=== PATIENT | female | born 1975 | race Caucasian/White ===

== ENCOUNTER → 2023-02-09 | Outpatient (CLI) | payer MEDICARE ==
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
== END | disposition home or self-care (01) ==
LOC: RADXRMAIN 15:40
PROVIDERS: ATTEND Internal Medicine
DX: M48.04 Spinal stenosis, thoracic region (principal); K42.9 Umbilical hernia without obstruction or gangrene; M47.812 Spondylosis without myelopathy or radiculopathy, cervical region; V89.2XXA Person injured in unspecified motor-vehicle accident, traffic, initial encounter
CPT/HCPCS: 70450; 72125; 72128; 72131

== ENCOUNTER → 2024-04-16 | Outpatient (CLI) | payer MEDICARE, OTHER ==
[2024-04-16 19:33] LABS: ALT 12 U/L (8-44); AST 15 U/L (13-35); Albumin 4.3 g/dL (3.8-4.9); Albumin/Globulin Ratio 1.59 Ratio (1.60-3.17); Alkaline Phosphatase 79 U/L (41-126); BUN/Creat Ratio 12.38 Ratio (12.00-20.00); Blood Urea Nitrogen 9.9 mg/dL (9.0-27.0); Calcium 9.4 mg/dL (8.7-10.3); Carbon Dioxide 21.4 mmol/L (21.6-31.8); Chloride 103 mmol/L (96-109); Globulin 2.7 g/dL (1.6-3.3); Glucose 151 mg/dL (70-110); Sodium 137 mmol/L (135-145); Total Bilirubin 0.2 mg/dL (0.3-1.2)
[2024-04-16 21:11] LABS: Basophils # (A) 0.06 X 10*3/uL (0.00-0.10); Basophils % (A) 0.5 %; Eosinophils # (A) 0.13 X 10*3/uL (0.04-0.35); Eosinophils % (A) 1.1 %; HCT 44.1 % (37.2-46.3); HGB 14.4 g/dL (12.0-15.0); Lymphocytes # (A) 3.47 X 10*3/uL (0.90-5.00); Lymphocytes % (A) 28.6 %; MCH 29.9 pg (27.0-32.0); MCHC 32.7 g/dL (32.0-37.0); MCV 91.5 FL (80.0-97.0); Mean Platelet Volume 9.5 FL (9.5-12.2); Monocytes # (A) 0.68 X 10*3/uL (0.20-1.00); Monocytes % (A) 5.6 %; NRBC Per 100 WBC 0 X 10*3/uL (0.00-0.01); Neutrophils # (A) 7.68 X 10*3/uL (1.80-7.70); Neutrophils % (A) 63.4 %; Platelet Count 372 X 10*3/uL (140-440); RBC 4.82 X 10*6/uL (4.10-5.20); RDW 13.2 % (11.5-14.5); WBC 12.12 X 10*3/uL (4.50-10.00)
== END | disposition home or self-care (01) ==
LOC: LABWHC1 15:07
PROVIDERS: ATTEND Internal Medicine
DX: L68.9 Hypertrichosis, unspecified (principal)
CPT/HCPCS: 36415; 80053; 82040; 82157; 82533; 82627; 84146; 84270; 84403; 84443; 85025

== ENCOUNTER → 2024-04-29 | Outpatient (CLI) | payer MEDICARE, OTHER ==
--- NOTE | 2024-04-29 16:52 | US ---
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 Transvaginal sonographic images of the pelvis were acquired. Date of LMP: age 32 EXAM MEASUREMENTS: Left Ovary: 3.3 x 1.9 x 2.1 cm 1. Uterus: Surgically absent 2. Endometrium: Surgically absent 3. Right Ovary: Surgically absent 4. Left Ovary: Follicles, small calcification= 0.3 x 0.4 x 0.3 cm 5. Bilateral Adnexa: wnl 6. Posterior cul-de-sac: wnl IMPRESSION: No evidence for acute process. The left ovary does not have a polycystic ovarian syndrome morphology.
--- NOTE | 2024-06-04 12:39 | MM ---
Reason for Exam: Screening (asymptomatic). Last mammogram was performed 2 year(s) and 1 month(s) ago. Patient History: Menarche at age 13. First Full-Term at age 17. Left ovary removed at age 32. Hysterectomy at age 32. Maternal grandmother had breast cancer, age 58. Maternal aunt (JOSE) had breast cancer, age 62. Maternal aunt (TSARR) had breast cancer, age 59. Maternal aunt (ANTWAN) had breast cancer, age 65. Maternal aunt (JOSE) tested for BRCA1 outcome was negative. Risk Values: Tatiana 5 year model risk: 0.7%. NCI Lifetime model risk: 7.6%. Prior Study Comparison: 04/01/2022 Bilateral Screening Mammogram, [facility]. Tissue Density: There are scattered areas of fibroglandular density. Findings: Analyzed By CAD. A few scattered benign round and punctate calcifications. Some dystrophic calcification lower inner quadrant right breast is unchanged. No significant change from prior exam. Overall Assessment: Benign, BI-RAD 2 Management: Screening Mammogram of both breasts in 1 year. 1. Screening Mammogram Bilateral in 1 Year . 2. Patient should continue monthly self-breast exams. A clinical breast exam by your physician is recommended on an annual basis. 3. This exam should not preclude additional follow-up of suspicious palpable abnormalities. Electronically signed and approved by: Cyndi Barron M.D. Radiologist
== END | disposition home or self-care (01) ==
LOC: RADMAMWWP 16:04
PROVIDERS: ATTEND Internal Medicine
DX: Z12.31 Encounter for screening mammogram for malignant neoplasm of breast (principal); R92.323 Mammographic fibroglandular density, bilateral breasts; L68.9 Hypertrichosis, unspecified; Z80.3 Family history of malignant neoplasm of breast; Z90.721 Acquired absence of ovaries, unilateral
CPT/HCPCS: 76830; 77063; 77067

== ENCOUNTER → 2025-02-06 | Outpatient (CLI) | payer MEDICARE, OTHER ==
--- NOTE | 2025-02-06 21:11 | XR ---
EXAMINATION TYPE: XR chest 2V DATE OF EXAM: 02/06/2025 3:16 PM COMPARISON: None CLINICAL INDICATION: Female, 49 years old with history of J69.0 ASPIRATION PNEUMONIA, shortness of br eath TECHNIQUE: Frontal and lateral views FINDINGS: Heart normal size. Aorta and pulmonary vasculature within normal limits. Mild peribronchial cuffing. No consolidation or pleural effusion. IMPRESSION: Mild peribronchial cuffing suggests bronchitis or asthma. Otherwise, no acute process seen. [facility], Workstation: [id number], 02/06/2025 9:09 PM
== END | disposition home or self-care (01) ==
LOC: RADXRMAIN 14:43
PROVIDERS: ATTEND Internal Medicine
DX: J69.0 Pneumonitis due to inhalation of food and vomit (principal); J98.09 Other diseases of bronchus, not elsewhere classified
CPT/HCPCS: 71046

== ENCOUNTER → 2025-03-21 | Outpatient (CLI) | payer MEDICARE, OTHER ==
--- NOTE | 2025-03-21 14:34 | XR ---
EXAMINATION TYPE: XR chest 2V DATE OF EXAM: 03/21/2025 2:28 PM COMPARISON: Chest radiographs from 02/06/2025 CLINICAL INDICATION: Female, 49 years old with history of J69.0 PNEUMONITIS DUE TO INHALATION OF FOOD AND VOMIT; [facility] TECHNIQUE: XR chest 2V Frontal and lateral views of the chest. FINDINGS: Lungs/Pleura: There is no evidence of pleural effusion, focal consolidation, or pneumothorax. Pulmonary vascularity: Unremarkable. Heart/mediastinum: Cardiomediastinal silhouette is unremarkable. Musculoskeletal: No acute osseous pathology. Other findings: None IMPRESSION: No acute cardiopulmonary disease/process. [facility], , 03/21/2025 2:32 PM
== END | disposition home or self-care (01) ==
LOC: RADXRMAIN 14:18
PROVIDERS: ATTEND Internal Medicine
DX: J69.0 Pneumonitis due to inhalation of food and vomit (principal)
CPT/HCPCS: 71046